=== PATIENT | male | born 1965 | race Caucasian/White ===

== ENCOUNTER → 2019-09-20 | Outpatient (CLI) | payer BC | END | disposition home or self-care (01) | LOC: SJCVCIMAG 12:31 | DX: I37.1 Nonrheumatic pulmonary valve insufficiency (principal); R94.31 Abnormal electrocardiogram [ECG] [EKG]; I48.91 Unspecified atrial fibrillation ==

== ENCOUNTER → 2020-08-28 | Outpatient (CLI) | payer OTHER | LOC: CAT 08:05 | PROVIDERS: ATTEND Internal Medicine Cardiovascular Disease | DX: Z13.6 Encounter for screening for cardiovascular disorders (principal); I25.10 Atherosclerotic heart disease of native coronary artery without angina pectoris; E78.00 Pure hypercholesterolemia, unspecified ==

== ENCOUNTER → 2021-10-28 | Outpatient (CLI) | payer BC | LOC: SJCVCIMAG 08:24 | PROVIDERS: ATTEND Internal Medicine Cardiovascular Disease | DX: I49.1 Atrial premature depolarization (principal); I49.3 Ventricular premature depolarization; I45.10 Unspecified right bundle-branch block; I48.91 Unspecified atrial fibrillation; I10 Essential (primary) hypertension; R06.00 Dyspnea, unspecified; R53.83 Other fatigue ==